=== PATIENT | male | born 1955 | race Caucasian/White ===

== ENCOUNTER 2016-10-31 12:59 | Outpatient (RCR) | payer BC ==
--- OUTSIDE RECORDS SUMMARY | 2016-08-06 13:06 | XMS REPORT | Continuity of Care Document ---
Author Author [facility] Organization [facility] Address Unknown Phone Unavailable Care Team Providers Care Rewind Operator Name Role Phone ANTIONETTE RUTH MD PCP Insurance Providers Payer Name Policy Number Subscriber Name Relationship [facility] [id number] Abel Britton 18 Self / Same As Patient Advance Directives Directive Response Recorded Date/Time Advance Directives No 05/10/16 11:00am Health Care Power of Staff Occupational Therapist No 05/10/16 11:00am Organ Donor Yes 05/10/16 11:00am Problems Active Problems Medical Problem Onset Date Status Cannabis abuse, daily use Unknown Acute Cerebrovascular accident due to cerebral artery occlusion Unknown Acute Daily consumption of alcohol Unknown Acute Hypertensive emergency Unknown Acute Malignant hypertension Unknown Acute Renal insufficiency Unknown Acute Stroke due to embolism of left anterior cerebral artery Unknown Acute TIA (transient ischemic attack) Unknown Acute Medications Current Home Medications Medication Dose Units Route Directions Days/Qty Instructions Start Date Aspirin 325 Mg 325 Mg Oral Every 24 Hours 30 Days 05/10/16 Rivaroxaban 20 Mg 20 Mg Oral Daily@1200 30 07/02/16 Atorvastatin Calcium 80 Mg 80 Mg Oral Bedtime 30 07/02/16 Clonidine Hcl 0.1 Mg 0.1 Mg Oral Twice A Day 60 07/02/16 Metoprolol Tartrate 50 Mg 100 Mg Oral Twice A Day 60 07/02/16 Amlodipine Besylate 10 Mg 10 Mg Oral Daily 30 07/02/16 Enalapril Maleate 10 Mg 20 Mg Oral Twice A Day 60 07/02/16 Citalopram Hydrobromide 10 Mg 10 Mg Oral Daily 30 07/02/16 Potassium Chloride 10 Meq 10 Meq Oral Daily 30 07/02/16 Past Home Medications Medication Directions Ordered Status Rivaroxaban 20 Mg Tablet, 20 Mg Oral Daily@1200 05/10/16 Discontinued Atorvastatin Calcium 80 Mg Tablet, 80 Mg Oral Bedtime 05/10/16 Discontinued Clonidine Hcl 0.1 Mg Tablet, 0.1 Mg Oral Twice A Day 05/10/16 Discontinued Metoprolol Tartrate 50 Mg Tablet, 100 Mg Oral Twice A Day 05/10/16 Discontinued Amlodipine Besylate 10 Mg Tablet, 10 Mg Oral Daily 05/10/16 Discontinued Enalapril Maleate 10 Mg Tablet, 20 Mg Oral Twice A Day 05/10/16 Discontinued Citalopram Hydrobromide 10 Mg Tablet, 10 Mg Oral Daily 05/10/16 Discontinued Potassium Chloride 10 Meq Tab.er.prt, 10 Meq Oral Daily 05/10/16 Discontinued Social History Social History Problem Response Recorded Date/Time Alcohol Use Regular Use 05/10/2016 3:14pm Recreational Drug Use Y DAILY THC USE 05/10/2016 3:14pm Recent Foreign Travel No 07/23/2016 12:28pm Hospital Discharge Instructions No hospital discharge instructions. Plan of Care Prescriptions See Medication Section Functional Status No functional status results. Allergies, Adverse Reactions, Alerts No known allergies. Immunizations No immunization records. Vital Signs No known vital signs results. Results No known relevant diagnostic tests, laboratory data and/or discharge summary. Procedures No known history of procedures. Encounters Encounter Location Arrival/Admit Date Discharge/Depart Date Attending Provider Registered Recurring [facility] 08/01/16 12:58pm ANTIONETTE RUTH MD Departed Clinic [facility] 07/24/16 11:15am 07/24/16 11: 42am YUNG CHOWDARY DO
[~2016-10-31 12:59] MED LIST: AMLO10TA2 PO; ASPI325T32 PO; ATOR80TA76 PO; CITA10TA7 PO; CLON0.1T PO; ENAL10TA PO; METO50TA2 PO; POTA10TA36 PO; RIVA20TA PO
[2016-11-25] MEDS ORDERED: LEVE500T6 PO (08:09)
[2016-11-25] MEDS ORDERED: METO-333 PO (08:48)
== END 2016-11-04 | disposition home or self-care (01) ==
PROVIDERS: ATTEND Internal Medicine
DX: I69.351 Hemiplegia and hemiparesis following cerebral infarction affecting right dominant side (principal); I69.320 Aphasia following cerebral infarction

== ENCOUNTER 2016-11-24 05:31 | Observation (INO) | payer BC ==
[~2016-11-24] VITALS: Ht 177.8 cm; Wt 106.6 kg
--- OUTSIDE RECORDS SUMMARY | 2016-11-24 05:37 | XMS REPORT | Continuity of Care Document ---
Author Author [facility] Organization [facility] Address Unknown Phone Unavailable Care Team Providers Care Therapeutic Riding Instructor Name Role Phone ANTIONETTE RUTH MD PCP Insurance Providers Payer Name Policy Number Subscriber Name Relationship [facility] [id number] Abel Britton 18 Self / Same As Patient Advance Directives Directive Response Recorded Date/Time Advance Directives No 05/10/16 11:00am Health Care Power of Shed Workers Supervisor No 05/10/16 11:00am Organ Donor Yes 05/10/16 [...] Discharge/Depart Date Attending Provider Registered Recurring [facility] 08/01/16 12:58pm ANTIONETTE RUTH MD Departed Clinic [facility] 07/24/16 11:15am 07/24/16 11: 42am YUNG CHOWDARY DO
--- NOTE | 2016-11-24 05:44 | ED Neurological Problem ---
General Chief Complaint: Neuro-Stroke Like Symptoms Stated Complaint: POSS STROKE Source: patient, EMS (JUAN GORDON DO) History of Present Illness Time seen by provider: 05:29 Initial Comments PT ARRIVES VIA EMS FROM HOME PT HAD CVA 05/2016 WITH RESIDUAL RIGHT SIDE WEAKNESS, SLURRED SPEECH AND RIGHT FACIAL DROOP WHEN PT WOKE UP THIS AM AT 0400, PT'S THOUGHT THAT HIS SPEECH WAS MORE SLURRED THAN NORMAL AND THE RIGHT SIDED FACIAL DROOP WAS WORSE THAN NORMAL THIS AM PT DENIES THAT HE IS ANY DIFFERENT THAN NORMAL AND STATES THAT HE FEELS FINE AND HAS NO COMPLAINTS OF ANY KIND NO NUMBNESS / TINGLING ANYWHERE NO HEADACHE OR PAIN ANYWHERE NO VISION CHANGES NO DIZZINESS 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 GUTHRIE (JUAN GORDON DO) Initial Comments reports to me that he woke up at 4 am and used urinal then went back to sleep. Later, she heard noises from his room and checked on him. He was half in and half out of bed and was making odd movements like he was trying to get into bed but was not responding to questions. After several minutes, he was begining to answer questions and then over time became back to normal except some right sided facial droop that is worse than normal. Has residual right sided weakness to arm and leg since stroke in May 2016. Also in speech therapy. (JACK SIMMONS MD) Allergies and Home Medications Allergies Coded Allergies: No Known Drug Allergies (Unverified , 05/03/16) Home Medications Acetaminophen 500 Mg Tablet 1-2 TAB PO Q4H PRN PRN PAIN (Reported) Amlodipine Besylate 10 Mg Tablet #30 10 MG PO DAILY Prescribed by: GRACIE MANZANO on 07/02/16 1354 Aspirin 325 Mg Tablet.dr 30Days 325 MG PO Q24H Prescribed by: GABRIELLE SENA on 05/10/16 0847 Atorvastatin Calcium 80 Mg Tablet #30 80 MG PO HS Prescribed by: GRACIE MANZANO on 07/02/16 1354 Citalopram Hydrobromide 10 Mg Tablet #30 10 MG PO DAILY Prescribed by: GRACIE MANZANO on 07/02/16 1354 Clonidine HCl 0.1 Mg Tablet #60 0.1 MG PO BID Prescribed by: GRACIE MANZANO on 07/02/16 1354 Enalapril Maleate 20 Mg Tablet 20 MG PO DAILY (Reported) Levetiracetam 500 Mg Tablet #60 500 MG PO BID Prescribed by: ANTIONETTE GUTHRIE on 11/25/16 0809 Metoprolol Tartrate 25 Mg Tablet #30 25 MG PO BID Prescribed by: ANTIONETTE GUTHRIE on 11/25/16 0848 Rivaroxaban 20 Mg Tablet #30 15 MG PO DAILY@1999 Prescribed by: MERT MUNROE on 11/24/16 0829 Constitutional: no symptoms reported Eyes: No Symptoms Reported Ears, Nose, Mouth, Throat: no symptoms reported Respiratory: no symptoms reported Cardiovascular: no symptoms reported Gastrointestinal: no symptoms reported Genitourinary: no symptoms reported Musculoskeletal: no symptoms reported Skin: no symptoms reported Psychiatric/Neurological: See HPI Endocrine: No Symptoms Reported Hematologic/Lymphatic: No Symptoms Reported (JUAN GORDON DO) Past Uggpbgq-Qjmyct-[id number] Hx Patient Social History Alcohol Use: Denies Use Recreational Drug Use: Yes (THC) Smoking Status: Never a Smoker Recent Hopitalizations: No Physical Abuse Screen: No Sexual Abuse: No (LAVELL GORDONA Tila TOLBERT) Immunizations Up To Date Tetanus Booster (TDap): Unknown (EVANLAVELLA Tila TOLBERT) Seasonal Allergies Seasonal Allergies: No (EVANLAVELLA Tila TOLBERT) Surgeries HX Surgeries: Yes (LOOP RECORDER PLACED 05/28/16) (JUAN GORDON DO) Respiratory Hx Respiratory Disorders: Yes (BRONCHITIS A CHILD; CPAP AT HS) Respiratory Disorders: Sleep Apnea (LAVELL GORDONA Tila TOLBERT) Cardiovascular Hx Cardiac Disorders: Yes (PAROXYSMAL ATRIAL FIB) Cardiac Disorders: Atrial Fibrillation, High Cholesterol, Hypertension (EVANLAVELLA K DO) Neurological Hx Neurological Disorders: Yes (CVA 05/2016 WITH RESIDUAL RIGHT SIDE WEAKNESS, RIGHT FACIAL DROOP AND MILDLY SLURRED SPEECH) Neurological Disorders: Stroke (EVANLAVELLA Tila TOLBERT) Genitourinary Hx Genitourinary Disorders: No (LAVELL GORDONA Tila TOLBERT) Gastrointestinal Hx Gastrointestinal Disorders: Yes (FATTY LIVER DISEASE) (LAVELL GORDONA Tila TOLBERT) Musculoskeletal Hx Musculoskeletal Disorders: Yes (FRACTURED LEFT CLAVICLE, FINGER DISLOCATION- -NO SURGERIES) Musculoskeletal Disorders: Fractures (LAVELL GORDONA Tila TOLBERT) Endocrine Hx Endocrine Disorders: No (EVAN,JUAN K DO) HEENT HX ENT Disorders: No (EVAN,JUAN K DO) Cancer Hx Cancer: No (EVAN,JUAN K DO) Psychosocial Hx Psychiatric Problems: No (EVAN,JUAN K DO) Integumentary HX Skin/Integumentary Disorder: No (EVAN,JUAN K DO) Blood Transfusions Hx Blood Disorders: No (EVAN,JUAN K DO) Family Medical History Family Medial History: Completed stroke 19 MOTHER Diabetes mellitus 19 MOTHER FH: BPH (benign prostatic hypertrophy) 19 FATHER Hypertension 19 MOTHER G8 SISTER Parkinson's disease 19 MOTHER (EVAN,JUAN K DO) Family Medial History: Completed stroke 19 MOTHER Diabetes mellitus 19 MOTHER FH: BPH (benign prostatic hypertrophy) 19 FATHER Hypertension 19 MOTHER G8 SISTER Parkinson's disease 19 MOTHER (JACK SIMMONS MD) Physical Exam Vital Signs Capillary Refill : General Appearance: WD/WN no apparent distress other (SMILING. ) HEENT: PERRL/EOMI normal ENT inspection Neck: non-tender full range of motion supple normal inspectionNo carotid bruit Respiratory: normal breath sounds no respiratory distress no accessory muscle use Cardiovascular: normal peripheral pulses regular rate, rhythm no edema no JVD no murmur Peripheral Pulses: 2+ Dorsalis Pedis (R), 2+ Left Dors-Pedis (L), 2+ Radial Pulses (R), 2+ Radial Pulses (L) Gastrointestinal: normal bowel sounds non tender soft Extremities: normal range of motion non-tender normal inspection no pedal edema no calf tenderness normal capillary refill Neurologic/Psychiatric: alert normal mood/affect oriented x 3 other (VERY SLIGHT RIGHT FACIAL DROOP, NO SENSORY DEFICIT. SPEECH VERY SLIGHTLY SLURRED. TONGUE MIDLINE; MILD TO MODERATE WEAKNESS TO RIGHT ARM AND LEG, WITH RIGHT LOWER LEG/ANKLE/FOOT IN A BRACE ) Crainal Nerves: normal hearing PERRLNo abnormal gag reflex Motor/Sensory: no sensory deficit pronator drift (R) weak motor strength RUE weak motor strength RLE other ( ABOVE) Skin: normal color warm/dry (EVAN,JUAN K DO) Vital Signs Vital Sign - Last 12Hours 11/24/16 05:33 Temp 98.6 Pulse 68 Resp 18 B/P 145/92 Pulse Ox 96 O2 Delivery Room Air HEENT: other (contusion and abrasion noted to right side of tongue.) Back: normal inspection no CVA tenderness no vertebral tenderness (JACK SIMMONS MD) Stroke Stroke Thrombolytic Exclusion Age 18 or Over: Yes History of CVA: No Severe Hypertension: Yes GI or Bleed: No Subarachnoid Hemorrhage: No Intracranial Neoplasm/Aneurysm: No Puncture of Non-Compressible V: No Recent CPR: No Diabetic Hemorrhagic Retinopat: No Organ Biopsy: No Recent Obstetric Delivery: No Significant Hepatic Dysfunctio: No NIH Stoke Scale >22: No Improving Symptoms: No (JUAN GORDON DO) Progress/Results/Core Measures Results/Orders My Orders Orders-JUAN GORDON DO Ekg Tracing (11/24/16 05:38) Cbc With Automated Diff (11/24/16 05:38) Comprehensive Metabolic Panel (11/24/16 05:38) Protime With Inr (11/24/16 05:38) Partial Thromboplastin Time (11/24/16 05:38) Magnesium (11/24/16 05:38) Chest 1 View, Ap/Pa Only (11/24/16 05:38) Cardiac Profile 1 (11/24/16 05:38) Cardiac Profile 2 (11/24/16 11:38) Myoglobin Serum (11/24/16 05:38) Ct Head Wo (11/24/16 05:38) Monitor-Rhythm Ecg Trace Only (11/24/16 05:38) (JUAN GORDON DO) Lab Results Laboratory Tests Test 11/24/16 05:36 11/24/16 06:35 Range/Units Activated Partial Thromboplast Time 38 H 24-35 SEC Alanine Aminotransferase (ALT/SGPT) 60 H 0-55 U/L Albumin 4.3 3.2-4.5 G/DL Alkaline Phosphatase 122 40-136 U/L Anion Gap 12 5-14 MMOL/L Aspartate Amino Transf (AST/SGOT) 34 5-34 U/L BUN/Creatinine Ratio 12 Basophils # (Auto) 0.0 0.0-0.1 10^3/uL Basophils (%) (Auto) 1 0-10 % Blood Urea Nitrogen 18 7-18 MG/DL Calcium Level 9.3 8.5-10.1 MG/DL Carbon Dioxide Level 22 21-32 MMOL/L Chloride Level 107 98-107 MMOL/L Creatinine 1.53 H 0.60-1.30 MG/DL Eosinophils # (Auto) 0.2 0.0-0.3 10^3/uL Eosinophils (%) (Auto) 3 0-10 % Estimat Glomerular Filtration Rate 47 Glucose Level 96 70-105 MG/DL Hematocrit 47 40-54 % Hemoglobin 16.3 13.3-17.7 G/DL INR Comment 1.7 H 0.8-1.4 Lymphocytes # (Auto) 2.1 1.0-4.0 X 10^3 Lymphocytes (%) (Auto) 31 12-44 % Magnesium Level 2.4 1.8-2.4 MG/DL Mean Corpuscular Hemoglobin 31 25-34 PG Mean Corpuscular Hemoglobin Concent 35 32-36 G/DL Mean Corpuscular Volume 90 80-99 FL Mean Platelet Volume 11.8 H 7.4-10.4 FL Monocytes # (Auto) 0.8 0.0-1.0 X 10^3 Monocytes (%) (Auto) 11 0-12 % Myoglobin 101.1 H 10.0-92.0 NG/ML Neutrophils # (Auto) 3.6 1.8-7.8 X 10^3 Neutrophils (%) (Auto) 54 42-75 % Platelet Count 172 130-400 10^3/uL Potassium Level 4.0 3.6-5.0 MMOL/L Prothrombin Time 19.7 H 12.2-14.7 SEC Red Blood Count 5.23 4.35-5.85 10^6/uL Red Cell Distribution Width 12.7 10.0-14.5 % Sodium Level 141 135-145 MMOL/L Total Bilirubin 0.4 0.1-1.0 MG/DL Total Protein 6.9 6.4-8.2 G/DL Troponin I < 0.30 <0.30 NG/ML White Blood Count 6.7 4.3-11.0 10^3/uL Urine Bacteria TRACE /HPF Urine Bilirubin NEGATIVE NEGATIVE Urine Casts PRESENT /LPF Urine Clarity CLEAR Urine Color YELLOW Urine Crystals NONE /LPF Urine Culture Indicated NO Urine Glucose (UA) NEGATIVE NEGATIVE Urine Hyaline Casts RARE /LPF Urine Ketones NEGATIVE NEGATIVE Urine Leukocyte Esterase NEGATIVE NEGATIVE Urine Mucus NEGATIVE /LPF Urine Nitrite NEGATIVE NEGATIVE Urine Protein 1+ H NEGATIVE Urine RBC RARE /HPF Urine RBC (Auto) 1+ H NEGATIVE Urine Specific Flora 1.020 1.016-1.022 Urine Squamous Epithelial Cells RARE /HPF Urine Urobilinogen NORMAL NORMAL MG/DL Urine WBC NONE /HPF Urine pH 5 5-9 My Orders Orders-JACK SIMMONS MD Levetiracetam Injection (Keppra Injectio (11/24/16 06:36) Ua Culture If Indicated (11/24/16 06:39) Vital Signs/I&O Vital Sign - Last 12Hours 11/24/16 11/24/16 05:33 07:02 Temp 98.6 98.6 Pulse 68 58 Resp 18 18 B/P 145/92 Pulse Ox 96 96 O2 Delivery Room Air Room Air (JACK SIMMONS MD) Progress Note : Progress Note 0600--CARE TURNED OVER TO DR. SIMMONS, ALL STUDIES PENDING (JUAN GORDON DO) Progress Note : Progress Note I assumed care of the patient pending CT and labs. 0630, Indications of seizure noted in physical exam and history. Keppra 1000 mg IV x 1 now loading dose. [address] Steen (Dr Guthrie PCP). She accepts patient for admission observation status. Patient and family agree with plan. Pt has history of stroke. This does not appear to represent new stroke and TPA not indicated. Exam indicative of residual weakness. Patient reports he does not want TPA either way. Patient on Xarelto and ASA daily and took yesterdays dosing as prescribed. (JACK SIMMONS MD) ECG Initial ECG Impression Time: 05:47 Initial ECG Rate: 65 Initial ECG Rhythm: Normal Sinus Initial ECG Impression: Normal Initial ECG Comparisson: Unchanged (JUAN GORDON DO) Diagnostic Imaging Comments CT HEAD CXR (JUAN GORDON DO) Diagonstic Imaging: Xray Plain Films/CT/US/NM/MRI: chest Comments NAME: ALPESH BRITTON J MED REC#: [id number] PT STATUS: REG ER : 1955 PHYSICIAN: JUAN GORDON DO ADMIT DATE: 11/24/16/ER Signed Date of Exam: 11/24/16 CHEST 1 VIEW, AP/PA ONLY Indication: Slurred speech. Facial droop. History of stroke. Findings: Upright portable chest shows normal heart size and vascularity. The lungs are clear. There is no effusion or pneumothorax. Impression: Normal portable chest. There is no change from 05/03/16. Dictated by: Dictated on workstation # [id number] Dict: 11/24/16 0655 Trans: 11/24/[address] [facility] [id number] Interpreted by: CARIE CARREON MD Electronically signed by:CARIE CARREON MD 11/24/16 0704 Reviewed: Reviewed by Me Diagonstic Imaging: CT Plain Films/CT/US/NM/MRI: head Comments NAME: ALPESH BRITTON [facility] REC#: [id number] PT STATUS: REG ER : 1955 PHYSICIAN: JUAN GORDON DO ADMIT DATE: 11/24/16/ER Signed Date of Exam: 11/24/16 CT HEAD WO PROCEDURE: CT head without contrast. TECHNIQUE: Multiple contiguous axial images were obtained through the brain without the use of intravenous contrast. INDICATION: Slurred speech. Right-sided facial droop. History of stroke. The ventricles are normal in size, shape and position. There are encephalomalacia changes in the medial left frontal lobe in an anterior cerebral artery distribution. There is no acute parenchymal hemorrhage, edema or mass. There is no extra-axial mass or hemorrhage. IMPRESSION: Previous vascular insult in left anterior cerebral artery distribution. These changes were seen on a prior study from 05/13/16. No acute abnormality is seen. Dictated by: Dictated on workstation # [id number] Dict: 11/24/16 0653 Trans: 11/24/[address] [facility] [id number] Interpreted by: CAIRE CARREON MD Electronically signed by:CARIE CARREON MD 11/24/16 0704 Reviewed: Reviewed [facility] Study, Reviewed by Me (JACK SIMMONS MD) Departure Communication Time/Spoke to Admitting Phy: 06:40 (JACK SIMMONS MD) Impression Impression: Primary Impression: New onset seizure Disposition: ADMITTED INPATIENT Condition: Stable Decision to Admit Reason: Admit from ER (General) Decision to Admit/Date: Nov 24, 2016 Time/Decision to Admit Time: 06:40 (AJCK SIMMONS MD) Departure-Patient Inst. Referrals: ANTIONETTE GUTHRIE MD (PCP) Primary Care Physician Scripts Metoprolol Tartrate 25 Mg [id number] Mg PO BID #30 TAB Prov:ANTIONETTE GUTHRIE MD 11/25/16 Levetiracetam 500 Mg [id number] Mg PO BID #60 TAB Ref 5 Prov:ANTIONETTE GUTHRIE MD 11/25/16 Rivaroxaban (Xarelto)20 Mg [id number] Mg PO DAILY@1999 #30 TAB Prov: 11/24/16 JUAN GORDON DO Nov 24, 2016 05:44 JACK SIMMONS MD Nov 24, 2016 06:55
[2016-11-24 05:46] LABS: BASOPHILS % (AUTO) 1 % (0-10); EOSINOPHILS # (AUTO) 0.2 10^3/uL (0.0-0.3); EOSINOPHILS % (AUTO) 3 % (0-10); LYMPHOCYTES # (AUTO) 2.1 X 10^3 (1.0-4.0); LYMPHOCYTES % (AUTO) 31 % (12-44); MEAN CORPUSCULAR HEMOGLOBIN 31 PG (25-34); MEAN CORPUSCULAR HGB CONC 35 G/DL (32-36); MEAN CORPUSCULAR VOLUME 90 FL (80-99); MEAN PLATELET VOLUME 11.8 FL (7.4-10.4); MONOCYTES # (AUTO) 0.8 X 10^3 (0.0-1.0); MONOCYTES % (AUTO) 11 % (0-12); NEUTROPHILS # (AUTO) 3.6 X 10^3 (1.8-7.8); NEUTROPHILS % (AUTO) 54 % (42-75); PLATELET COUNT 172 10^3/uL (130-400); RED BLOOD COUNT 5.23 10^6/uL (4.35-5.85); RED CELL DISTRIBUTION WIDTH 12.7 % (10.0-14.5); WHITE BLOOD COUNT 6.7 10^3/uL (4.3-11.0)
[2016-11-24] MEDS ORDERED: METO50TA2 PO (05:49)
[2016-11-24] MEDS ORDERED: ACET-2267 PO (05:49)
[2016-11-24] MEDS ORDERED: ENAL20TA PO (05:49)
[2016-11-24 05:56] LABS: INR 1.7 (0.8-1.4); PROTHROMBIN TIME PATIENT 19.7 SEC (12.2-14.7)
[2016-11-24 06:10] LABS: ALANINE AMINOTRANSFERASE 60 U/L (0-55); ALBUMIN 4.3 G/DL (3.2-4.5); ANION GAP 12 MMOL/L (5-14); ASPARTATE AMINO TRANSFERASE 34 U/L (5-34); BILIRUBIN,TOTAL 0.4 MG/DL (0.1-1.0); BLOOD UREA NITROGEN 18 MG/DL (7-18); BUN/CREATININE RATIO 12; CALCIUM 9.3 MG/DL (8.5-10.1); CARBON DIOXIDE 22 MMOL/L (21-32); CHLORIDE 107 MMOL/L (98-107); CREATININE SERUM 1.53 MG/DL (0.60-1.30); GFR ESTIMATED 47; GLUCOSE 96 MG/DL (70-105); MAGNESIUM 2.4 MG/DL (1.8-2.4); SODIUM 141 MMOL/L (135-145); TOTAL PROTEIN 6.9 G/DL (6.4-8.2)
[2016-11-24 06:18] LABS: MYOGLOBIN SERUM 101.1 NG/ML (10.0-92.0)
[2016-11-24] MEDS ORDERED: LEVETIRACETAM INJECTION 1,000 MG in NORMAL SALINE (BAXTER MINI) 100 ML IV STA (06:36)
[2016-11-24 06:48] LABS: BILIRUBIN,URINE NEGATIVE (NEGATIVE); KETONES,URINE NEGATIVE (NEGATIVE); LEUKOCYTE ESTERASE ,URINE NEGATIVE (NEGATIVE); NITRITE,URINE NEGATIVE (NEGATIVE); PH,URINE 5 (5-9); PROTEIN,URINE 1+ (NEGATIVE); UROBILINOGEN,URINE NORMAL (NORMAL)
[2016-11-24 06:53] LABS: HYALINE CASTS, URINE RARE /LPF; SQUAMOUS EPITHELIAL CELL,UR RARE /HPF
--- NOTE | 2016-11-24 06:56 | Diagnostic Imaging Report ---
PROCEDURE: CT head without contrast. TECHNIQUE: Multiple contiguous axial images were obtained through the brain without the use of intravenous contrast. INDICATION: Slurred speech. Right-sided facial droop. History of stroke. The ventricles are normal in size, shape and position. There are encephalomalacia changes in the medial left frontal lobe in an anterior cerebral artery distribution. There is no acute parenchymal hemorrhage, edema or mass. There is no extra-axial mass or hemorrhage. IMPRESSION: Previous vascular insult in left anterior cerebral artery distribution. These changes were seen on a prior study from 05/13/16. No acute abnormality is seen. Dictated by: Dictated on workstation # [id number]
--- NOTE | 2016-11-24 06:57 | Diagnostic Imaging Report ---
Indication: Slurred speech. Facial droop. History of stroke. Findings: Upright portable chest shows normal heart size and vascularity. The lungs are clear. There is no effusion or pneumothorax. Impression: Normal portable chest. There is no change from 05/03/16. Dictated by: Dictated on workstation # [id number]
[2016-11-24] MEDS ORDERED: NS IV 1000 ML 1,000 ML IV SCH (07:45)
[2016-11-24] MEDS ORDERED: LORazepam INJ 2 MG/ML (ATIVAN) VIAL IV PRN (07:45)
[2016-11-24] MEDS ORDERED: RIVA20TA PO ×2 (08:24→08:29)
[2016-11-24] MEDS ORDERED: ACETAMINOPHEN 500 MG TAB (TYLENOL) PO PRN (08:30)
[2016-11-24] MEDS ORDERED: ENALAPRIL 10 MG (VASOTEC) TAB PO SCH (09:00)
[2016-11-24] MEDS ORDERED: meTOprolol TARTRATE 50 MG (LOPRESSOR) TAB PO SCH (09:00)
[2016-11-24] MEDS ORDERED: ASPIRIN E.C. 325 MG (ECOTRIN) TABLET PO SCH (09:00)
[2016-11-24] MEDS ORDERED: cloNIDine 0.1 MG (CATAPRES) TAB PO SCH (09:00)
[2016-11-24] MEDS ORDERED: amLODIPine 10 MG (NORVASC) TAB PO SCH (09:00)
[2016-11-24] MEDS: amLODIPine 10 MG (NORVASC) TAB PO SCH (11:15)
[2016-11-24] MEDS: ASPIRIN E.C. 325 MG (ECOTRIN) TABLET PO SCH (11:16)
[2016-11-24] MEDS: ENALAPRIL 20MG TABLET PO SCH (11:16)
[2016-11-24] MEDS: meTOprolol TARTRATE 50 MG (LOPRESSOR) TAB PO SCH ×2 (11:17→21:00)
[2016-11-24] MEDS: cloNIDine 0.1 MG (CATAPRES) TAB PO SCH ×2 (11:18→16:19)
--- NOTE | 2016-11-24 11:20 | History & Physical-Hospitalist ---
HPI History of Present Illness: HPI/Chief Complaint this is a 61-year-old white male with a previous left-sided CVA with right- sided hemiparesis. He had been recovering well but was found with sonorous and gasping respirations nonresponsive in his bedroom by his this morning. He was confused as he began to awaken and there was bruising and evidence of trauma to his tongue. He is now completely awaken and alert and has no remembrance of this occasion Source: family Exam Limitations: clinical condition Date Seen 11/24/16 Attending Physician Kristen Jasso MD PCP Roger Guthrie MD Referring Physician Date of Admission Nov 24, 2016 at 07:14 Home Medications & Allergies Home Medications Reviewed patient Home Medication Reconciliation Form Allergies Coded Allergies: No Known Drug Allergies (Unverified , 05/03/16) Past Ldmuwpz-Vqexzv-Cdtskn Hx Patient Social History Employed/Student: employed Alcohol Use: Rarely Uses Recreational Drug Use: No Smoking Status: Never a Smoker Physical Abuse Screen: No Sexual Abuse: No Recent Foreign Travel: No Contact w/other who traveled: No Recent Hopitalizations: No Recent Infectious Disease Expo: No Immunizations Up To Date Tetanus Booster (TDap): Unknown Date of Pneumonia Vaccine: Aug 21, 2016 Date of Influenza Vaccine: Aug 21, 2016 Seasonal Allergies Seasonal Allergies: No Surgeries HX Surgeries: Yes (LOOP RECORDER PLACED 05/28/16) Respiratory Hx Respiratory Disorders: Yes (BRONCHITIS A CHILD; CPAP AT HS) Cardiovascular Hx Cardiovascular Disorders: Yes (PAROXYSMAL ATRIAL FIB) Cardiac Disorders: Atrial Fibrillation, High Cholesterol, Hypertension Neurological Hx Neurological Disorders: Yes (CVA 05/2016 WITH RESIDUAL RIGHT SIDE WEAKNESS, RIGHT FACIAL DROOP AND MILDLY SLURRED SPEECH) Neurological Disorders: Stroke Genitourinary Hx Genitourinary Disorders: Yes (renal insufficiency with mild proteinuria) Gastrointestinal Hx Gastrointestinal Disorders: Yes (FATTY LIVER DISEASE) Musculoskeletal Hx Musculoskeletal Disorders: Yes (FRACTURED LEFT CLAVICLE, FINGER DISLOCATION- -NO SURGERIES) Musculoskeletal Disorders: Fractures, Contracture Endocrine Hx Endocrine Disorders: No HEENT HX ENT Disorders: No Cancer Hx Cancer: No Psychosocial Hx Psychiatric Problems: No Integumentary HX Skin/Integumentary Disorder: No Blood Transfusions Hx Blood Disorders: No Family Medical History Family Hx: Completed stroke 19 MOTHER Diabetes mellitus 19 MOTHER FH: BPH (benign prostatic hypertrophy) 19 FATHER Hypertension 19 MOTHER G8 SISTER Parkinson's disease 19 MOTHER Review of Systems Constitutional: no symptoms reported Respiratory: no symptoms reported Cardiovascular: no symptoms reported Gastrointestinal: no symptoms reported Genitourinary: no symptoms reported Musculoskeletal: muscle stiffness Psychiatric/Neurological: Seizure Physical Exam Physical Exam Vital Signs Vital Sign - Last 12Hours 11/24/16 05:33 Temp 98.6 Pulse 68 Resp 18 B/P 145/92 Pulse Ox 96 O2 Delivery Room Air Capillary Refill : Less Than 3 Seconds General Appearance: No Apparent Distress WD/WN HEENT: Other (slight right facial droop that is old) Neck: Normal Inspection Non Tender Supple Respiratory: Chest Non Tender Lungs Clear Normal Breath Sounds Cardiovascular: Regular Rate, Rhythm No Gallop No Murmur Gastrointestinal: Normal Bowel Sounds No Organomegaly Non Tender Soft Back: Normal Inspection Extremity: Other (hemiparesis right side that's old) Neurologic/Psychiatric: Alert Oriented x3 Abnormal faculty administrator II-XII (unable to move his eyes laterally either to the left or to the right) Aphasia (expressive in complaint) Facial Droop Motor Weakness (right arm right leg) Skin: Normal Color Results Results/Procedures Lab Laboratory Tests 11/24/16 05:36 Assessment/Plan Admission Diagnosis 1. new-onset seizures most likely secondary to previous CVA 2. Sided CVA with right-sided hemiparesis presumed to be secondary to atrial fibrillation on Xarelto and aspirin 3. history of severe hypertension 4. History of mild renal insufficiency with a baseline creatinine 1.5 and 1+ proteinuria Plan to begin Keppra check her Keppra dose in the morning monitor for 24 hours for any further seizure activity. saturation could be given to an MRI tomorrow to examine other there has been any extension of the old stroke Clinical Quality Measures DVT/VTE Risk/Contraindication: Risk Factor Score Per Nursin RFS Level Per Nursing on Admit: 4+=Very High Stroke: Date of last known well: Nov 24, 2016 KRISTEN JASSO MD Nov 24, 2016 11:20
[2016-11-24 12:00] VITALS: BP 115/70
[2016-11-24 16:00] VITALS: BP 107/59
[2016-11-24 20:00] VITALS: BP 103/58
[2016-11-24] MEDS ORDERED: RIVAROXABAN 20 MG TABLET (XARELTO) PO SCH (20:00)
[2016-11-24] MEDS: LEVETIRACETAM 500 MG (KEPPRA) TAB PO SCH (20:09)
[2016-11-24] MEDS ORDERED: ATORVASTATIN 80 MG (LIPITOR) TABLET PO SCH (21:00)
[2016-11-25 00:10] VITALS: BP 127/84
[2016-11-25 04:00] VITALS: BP 132/87
[2016-11-25 08:00] VITALS: BP 144/91
[2016-11-25] MEDS ORDERED: LEVE500T6 PO (08:09)
[2016-11-25] MEDS ORDERED: METO-333 PO (08:48)
[2016-11-25] MEDS: LEVETIRACETAM 500 MG (KEPPRA) TAB PO SCH (10:00)
[2016-11-25] MEDS: meTOprolol TARTRATE 50 MG (LOPRESSOR) TAB PO SCH (10:02)
[2016-11-25] MEDS: amLODIPine 10 MG (NORVASC) TAB PO SCH (10:03)
[2016-11-25] MEDS: ASPIRIN E.C. 325 MG (ECOTRIN) TABLET PO SCH (10:04)
[2016-11-25] MEDS: ENALAPRIL 20MG TABLET PO SCH (10:05)
[2016-11-25] MEDS: cloNIDine 0.1 MG (CATAPRES) TAB PO SCH (10:05)
[2016-11-25 10:34] VITALS: BP 121/91
--- NOTE | 2016-11-28 15:41 | Physician Query-Final Dx ---
AFUA FREITAS 11/28/16 1541: Final Diagnosis Give Final Diagnosis Please give Final Diagnosis ANGELINA JASSO MD 12/02/16 0825: Final Diagnosis Give Final Diagnosis [place] Seizure CVA-old HTN AFUA FREITAS Nov 28, 2016 15:41 ANGELINA JASSO MD Dec 02, 2016 08:25
== END 2016-11-25 08:10 | disposition home or self-care (01) ==
LOC: EDUNIT# 05:31 → ER 05:33 → UNDOADMOB 07:14 → 4TH 07:14 → UNDODISOB 11-25 10:40
PROVIDERS: ADMIT Internal Medicine; ATTEND Internal Medicine
DX: I69.398 Other sequelae of cerebral infarction (principal); G40.909 Epilepsy, unspecified, not intractable, without status epilepticus; I69.351 Hemiplegia and hemiparesis following cerebral infarction affecting right dominant side; I69.328 Other speech and language deficits following cerebral infarction; I69.392 Facial weakness following cerebral infarction; I48.0 Paroxysmal atrial fibrillation; I10 Essential (primary) hypertension
CPT/HCPCS: 36415; 70450; 71010; 80053; 80177; 81000; 83735; 83874; 84484; 85025; 85610; 85730; 93005; 93041; 96365; G0378

== ENCOUNTER → 2017-02-04 | Outpatient (RCR) | payer BC ==
--- OUTSIDE RECORDS SUMMARY | 2016-11-06 13:35 | XMS REPORT | Continuity of Care Document ---
Author Author [facility] Organization [facility] Address Unknown Phone Unavailable Care Team Providers Care Test Desk Trouble Locator Name Role Phone ANTIONETTE RUTH MD PCP Insurance Providers Payer Name Policy Number Subscriber Name Relationship [facility] [id number] Abel Britton 18 Self / Same As Patient Advance Directives Directive Response Recorded Date/Time Advance Directives No 05/10/16 11:00am Health Care Power of Scow Derrick Operator No 05/10/16 11:00am Organ Donor Yes 05/10/16 [...] Discharge/Depart Date Attending Provider Registered Recurring [facility] 08/01/16 12:58pm ANTIONETTE RUTH MD Departed Clinic [facility] 07/24/16 11:15am 07/24/16 11: 42am YUNG CHOWDARY DO
[~2017-02-04] MED LIST changes: +ACET-2267 PO; +ENAL20TA PO; +LEVE500T6 PO; +METO-333 PO
== END | disposition home or self-care (01) ==
PROVIDERS: ATTEND Internal Medicine
DX: I69.351 Hemiplegia and hemiparesis following cerebral infarction affecting right dominant side (principal); I69.320 Aphasia following cerebral infarction

== ENCOUNTER 2017-05-01 12:58 | Outpatient (RCR) | payer BC | END 2017-05-07 | disposition home or self-care (01) | PROVIDERS: ATTEND Internal Medicine | DX: I69.351 Hemiplegia and hemiparesis following cerebral infarction affecting right dominant side (principal); I69.320 Aphasia following cerebral infarction ==

== ENCOUNTER 2017-07-31 13:07 | Outpatient (RCR) | payer BC | END 2017-08-02 | disposition home or self-care (01) | PROVIDERS: ATTEND Internal Medicine | DX: I69.351 Hemiplegia and hemiparesis following cerebral infarction affecting right dominant side; I69.320 Aphasia following cerebral infarction ==

== ENCOUNTER 2017-10-31 10:56 | Outpatient (RCR) | payer BC ==
[~2017-10-31 10:56] MED LIST changes: +METO50TA15 PO; -METO50TA2 PO
== END 2017-11-03 | disposition home or self-care (01) ==
PROVIDERS: ATTEND Internal Medicine
DX: I69.351 Hemiplegia and hemiparesis following cerebral infarction affecting right dominant side (principal); I69.320 Aphasia following cerebral infarction

== ENCOUNTER → 2017-12-04 | Outpatient (CLI) | payer BC ==
--- NOTE | 2017-12-04 17:48 | Diagnostic Imaging Report ---
INDICATION: Right arm swelling. FINDINGS: Duplex ultrasound of the right upper extremity was done with grayscale, spectral waveform, and color Doppler flow analysis. The veins were compressible and had normal spontaneous and augmented flow. IMPRESSION: Negative venous Doppler of the right upper extremity. Dictated by: Dictated on workstation # [id number]
== END ==
LOC: RAD 16:25
PROVIDERS: ATTEND Internal Medicine
DX: M79.89 Other specified soft tissue disorders (principal); W19.XXXA Unspecified fall, initial encounter

== ENCOUNTER → 2018-03-04 | Outpatient (RCR) | payer BC | END | disposition home or self-care (01) | PROVIDERS: ATTEND Internal Medicine | DX: I69.351 Hemiplegia and hemiparesis following cerebral infarction affecting right dominant side (principal); I69.320 Aphasia following cerebral infarction ==

== ENCOUNTER → 2018-03-16 | Outpatient (CLI) | payer BC ==
[2018-03-16 11:55] LABS: ABG BASE EXCESS 0.1 MMOL/L (-2.5-2.5); ABG OXYGEN SATURATION 96 % (94-100); ABG PCO2 38 MMHG (35-45); ABG PH 7.42 (7.37-7.43); ABG PO2 74 MMHG (79-93); ABG TCO2 25.3 MMOL/L (21.0-31.0); ALLENS TEST YES-POS; INSPIRED O2 ROOM AIR; PATIENT TEMP 98.4; VENTILATOR NO
== END ==
LOC: LAB 11:14
PROVIDERS: ATTEND Nurse Practitioner Family
DX: G47.33 Obstructive sleep apnea (adult) (pediatric) (principal)
CPT/HCPCS: 36600; 82805

== ENCOUNTER 2018-06-03 13:42 | Outpatient (RCR) | payer BC | END 2018-06-04 | disposition home or self-care (01) | PROVIDERS: ATTEND Internal Medicine | DX: I69.351 Hemiplegia and hemiparesis following cerebral infarction affecting right dominant side (principal); I69.320 Aphasia following cerebral infarction ==

== ENCOUNTER 2018-07-29 15:00 | Outpatient (RCR) | payer BC ==
[~2018-07-29 15:00] MED LIST changes: -AMLO10TA2 PO; +AMLO10TA6 PO
== END 2018-08-04 08:14 | disposition home or self-care (01) ==
PROVIDERS: ATTEND Internal Medicine
DX: I69.351 Hemiplegia and hemiparesis following cerebral infarction affecting right dominant side (principal); I69.320 Aphasia following cerebral infarction

== ENCOUNTER 2018-08-05 13:29 | Outpatient (RCR) | payer BC | END 2018-08-18 14:42 | disposition home or self-care (01) | PROVIDERS: ATTEND Internal Medicine | DX: I69.351 Hemiplegia and hemiparesis following cerebral infarction affecting right dominant side (principal); I69.320 Aphasia following cerebral infarction ==

== ENCOUNTER 2019-05-16 12:07 | Emergency (ER) | payer MEDICARE ==
[~2019-05-16] VITALS: Ht 180.3 cm; Wt 122.5 kg
[~2019-05-16 12:07] MED LIST changes: -AMLO10TA6 PO; +AMLO10TA7 PO; -RIVA20TA PO; +RIVA20TA2 PO
--- NOTE | 2019-05-16 12:25 | ED Head Injury ---
General Stated Complaint: MULTIPLE FALLS/HIT HEAD Source: patient Exam Limitations: no limitations History of Present Illness Date Seen by Provider: May 16, 2019 Time Seen by Provider: 12:20 Initial Comments To ER by private vehicle accompanied by his with reports of head injury and back pain. He has had a stroke with subsequent right-sided hemiparesis in 2016. He then had a seizure about 6 months later. Because of this right sided weakness he does fall occasionally. He fell once yesterday striking the right side of his forehead around the orthodox without loss of consciousness. He had a to attend yesterday and insisted that he go so he was not evaluated at that point. He then fell again this morning striking the back left side of his head. He states that overall he feels fine and has no complaints of weakness or feeling off. He is not concerned about the falls nor is his , they're concerned however about the injury sustained as result of these falls. He has developed some midline low back pain that does not radiate down either leg. He is not on anticoagulation other than aspirin. Occurred: yesterday Severity: moderate Location: temporal Method of Injury: fell Loss of Consciousness: no loss of consciousness Associated Systoms: Denies Symptoms; No Headaches, No Nausea/Vomiting, No Syncope, No Weakness Allergies and Home Medications Allergies Coded Allergies: No Known Drug Allergies (Unverified , 05/03/16) Home Medications Acetaminophen 500 Mg Tablet, 1-2 TAB PO Q4H PRN for PAIN, (Reported) Aspirin 325 Mg Tablet.dr, 325 MG PO Q24H Prescribed by: GABRIELLE SENA on 05/10/16 0847 Atorvastatin Calcium 80 Mg Tablet, 80 MG PO HS Prescribed by: GRACIE MANZANO on 07/02/16 1354 Citalopram Hydrobromide 10 Mg Tablet, 10 MG PO DAILY Prescribed by: GRACIE MANZANO on 07/02/16 1354 Enalapril Maleate 20 Mg Tablet, 20 MG PO DAILY, (Reported) Levetiracetam 500 Mg Tablet, 500 MG PO BID Prescribed by: ANTIONETTE RUTH on 11/25/16 0809 Metoprolol Tartrate 25 Mg Tablet, 25 MG PO BID Prescribed by: ANTIONETTE RUTH on 11/25/16 0848 Rivaroxaban 20 Mg Tablet, 15 MG PO DAILY@1999 Prescribed by: MERT MUNROE on 11/24/16 0829 Patient Home Medication List Home Medication List Reviewed: Yes (he is off xarelto according to his .) Review of Systems Review of Systems Constitutional: see HPI Eyes: No Symptoms Reported Ears, Nose, Mouth, Throat: no symptoms reported Respiratory: no symptoms reported Cardiovascular: no symptoms reported Genitourinary: no symptoms reported Musculoskeletal: see HPI, back pain Skin: no symptoms reported Psychiatric/Neurological: No Symptoms Reported Endocrine: No Symptoms Reported Hematologic/Lymphatic: No Symptoms Reported Past Kumuuoz-Vxdcao-Llrocr Hx Patient Social History Recent Foreign Travel: No Contact w/Someone Who Travel: No Recent Hopitalizations: No Immunizations Up To Date Tetanus Booster (TDap): Unknown Date of Pneumonia Vaccine: Aug 21, 2016 Date of Influenza Vaccine: Aug 21, 2016 Seasonal Allergies Seasonal Allergies: No Past Medical History Surgeries: Yes (LOOP RECORDER PLACED 05/28/16) Respiratory: Yes (BRONCHITIS A CHILD; CPAP AT HS) Sleep Apnea Currently Using CPAP: No Cardiac: Yes (PAROXYSMAL ATRIAL FIB) Atrial Fibrillation, High Cholesterol, Hypertension Neurological: Yes Stroke Gastrointestinal: Yes (FATTY LIVER DISEASE) Musculoskeletal: Yes (FRACTURED LEFT CLAVICLE, FINGER DISLOCATION--NO SURGERIES) Fractures, Contracture Endocrine: No Cancer: No Psychosocial: No Integumentary: No Blood Disorders: No Family Medical History Completed stroke 19 MOTHER Diabetes mellitus 19 MOTHER FH: BPH (benign prostatic hypertrophy) 19 FATHER Hypertension 19 MOTHER G8 SISTER Parkinson's disease 19 MOTHER Physical Exam Vital Signs Vital Signs - First Documented 05/16/19 12:11 Temp 97.5 Pulse 71 Resp 18 B/P (MAP) 132/83 (99) Pulse Ox 95 O2 Delivery Room Air Capillary Refill : Height, Weight, BMI Height: 5'10.00" Weight: 235lbs. 0.0oz. 106.489018oo; 33.7 BMI Method:Stated General Appearance: WD/WN, no apparent distress HEENT: PERRL/EOMI, normal ENT inspection, TMs normal, pharynx normal, other (Ecchymosis without palpable hematoma over the right orthodox. No visualized hematoma and abrasion or ecchymosis to the left occiput from his fall this morning) Neck: non-tender, full range of motion Respiratory: chest non-tender, no respiratory distress, no accessory muscle use Gastrointestinal: normal bowel sounds, non tender, soft; No tenderness Back: vertebral tenderness (upper lumbar midline) Extremities: non-tender, no pedal edema, no calf tenderness, other (has had right-sided weakness) Psychiatric: alert, oriented x 3 Crainal Nerves: normal hearing, normal speech [place] Coma Score Best Eye Response: (4) Open Spontaneously Best Verbal Response: (5) Oriented Best Motor Response: (6) Obeys Commands [place] Total: 15 Progress/Results/Core Measures Results/Orders My Orders Orders - DIANA PUENTES APRN Ct Head/Cervical Spine Wo (05/16/19 12:18) Ct Lumbar Spine Wo (05/16/19 12:18) Vital Signs/I&O 05/16/19 12:11 Temp 97.5 Pulse 71 Resp 18 B/P (MAP) 132/83 (99) Pulse Ox 95 O2 Delivery Room Air Departure Impression Primary Impression: Scalp contusion Qualified Codes: S00.03XA - Contusion of scalp, initial encounter Additional Impressions: Minor head injury Qualified Codes: S09.90XA - Unspecified injury of head, initial encounter Hemiparesis affecting right side as late effect of cerebrovascular accident (CVA) Disposition: 01 HOME, SELF-CARE Condition: Stable Departure-Patient Inst. Decision time for Depature: 13:25 Referrals: ANTIONETTE RUTH MD (PCP/Family) Primary Care Physician Patient Instructions: Minor Head Injury Add. Discharge Instructions: 1. Tylenol and ibuprofen are fine for pain control. Return to ER for any concerns DIANA PUENTES APRN May 16, 2019 12:25
--- NOTE | 2019-05-16 13:20 | Diagnostic Imaging Report ---
PROCEDURE: CT lumbar spine without contrast. TECHNIQUE: Multiple contiguous axial images were obtained through the lumbar spine without the use of intravenous contrast. Sagittal and coronal reformations were then performed. Auto Exposure Controls were utilized during the CT exam to meet ALARA standards for radiation dose reduction. INDICATION: Fell and hit head. Back pain after fall. FINDINGS: There is normal height and alignment of the lumbar vertebral bodies. The L1-L2 level shows no significant abnormality. At L2-L3, there is disc space narrowing and spondylosis with degenerated facets resulting in a dxwk-np-eyhtponi central canal stenosis. At L3-L4, there is disc space narrowing and bulging of disc and spondylosis with degenerated facets resulting in a moderately severe spinal canal stenosis. At L4-L5, there is disc space narrowing and bulging of the disc with degenerated facets resulting in a moderately severe spinal canal stenosis. At L5-S1, there is disc space narrowing and spondylosis which is causing bilateral foraminal narrowing. There is no fracture or other acute abnormality seen at any level. IMPRESSION: There are diffuse degenerative changes present resulting in multilevel stenosis. No fracture or other acute abnormality is evident. Dictated by: Dictated on workstation # [id number]
--- NOTE | 2019-05-16 13:21 | Diagnostic Imaging Report ---
PROCEDURE: CT head and CT cervical spine without contrast. TECHNIQUE: Multiple contiguous axial images were obtained through the brain and cervical spine without the use of intravenous contrast. Sagittal and coronal reformations through the cervical spine were then performed. Auto Exposure Controls were utilized during the CT exam to meet ALARA standards for radiation dose reduction. INDICATION: Fall yesterday with head injury and bruising to the right side of the head. COMPARISON: 11/24/2016 FINDINGS: CT HEAD: No acute intracranial hemorrhage is seen. There is no CT evidence of acute territorial ischemia. There is encephalomalacia in the left anterior cerebral distribution from old infarct which appear stable. No calvarium fracture is seen. There is mild soft tissue edema at the right frontal scalp. CT CERVICAL SPINE: No acute fracture is seen in the cervical spine. There is straightening of the lordosis but no spondylolisthesis. There is severe degenerative changes from C4-5 down to C7-T1. Vertebral body heights are preserved. No bony fragments or hyperdense fluid collections are seen in the spinal canal. The soft tissues of the neck demonstrate no acute abnormality. IMPRESSION: 1. No acute intracranial hemorrhage or calvarium fracture. There is mild right frontal soft tissue edema. 2. Advanced degenerative changes in the cervical spine with no acute fracture seen. Dictated by: Dictated on workstation # [id number]
[2019-05-16 13:36] VITALS: BP 117/69
== END 2019-05-16 13:36 | disposition home or self-care (01) ==
LOC: ER 12:07 → EDUNIT# 12:07 → ER 13:36
DX: S09.90XA Unspecified injury of head, initial encounter (principal); S00.03XA Contusion of scalp, initial encounter; I69.951 Hemiplegia and hemiparesis following unspecified cerebrovascular disease affecting right dominant side; G47.30 Sleep apnea, unspecified; I48.0 Paroxysmal atrial fibrillation; I10 Essential (primary) hypertension; E78.00 Pure hypercholesterolemia, unspecified; R40.2142 Coma scale, eyes open, spontaneous, at arrival to emergency department; R40.2252 Coma scale, best verbal response, oriented, at arrival to emergency department; R40.2362 Coma scale, best motor response, obeys commands, at arrival to emergency department; Z79.82 Long term (current) use of aspirin; Z82.49 Family history of ischemic heart disease and other diseases of the circulatory system; W01.198A Fall on same level from slipping, tripping and stumbling with subsequent striking against other object, initial encounter
CPT/HCPCS: 70450; 72125; 72131

== ENCOUNTER 2019-08-23 11:17 | Outpatient (RCR) | payer MEDICARE | END 2019-08-24 | disposition home or self-care (01) | PROVIDERS: ATTEND Internal Medicine | DX: I69.341 Monoplegia of lower limb following cerebral infarction affecting right dominant side (principal) ==

== ENCOUNTER 2019-09-09 11:07 | Outpatient (RCR) | payer MEDICARE | END 2019-09-09 13:00 | disposition home or self-care (01) | PROVIDERS: ATTEND Internal Medicine | DX: I69.341 Monoplegia of lower limb following cerebral infarction affecting right dominant side (principal); I69.310 Attention and concentration deficit following cerebral infarction ==

== ENCOUNTER 2021-05-24 13:45 | Outpatient (RCR) | payer MEDICARE ==
[~2021-05-24 13:45] MED LIST changes: +AMLO-251 PO; -AMLO10TA7 PO; +CLN.1T PO; -CLON0.1T PO; -ENAL10TA PO; +ENAL10TA16 PO; -ENAL20TA PO; +ENAL20TA16 PO
== END 2021-05-29 | disposition home or self-care (01) ==
PROVIDERS: ATTEND Internal Medicine
DX: S30.810A Abrasion of lower back and pelvis, initial encounter (principal); I10 Essential (primary) hypertension; W19.XXXA Unspecified fall, initial encounter; Z86.73 Personal history of transient ischemic attack (TIA), and cerebral infarction without residual deficits

== ENCOUNTER 2021-06-13 13:39 | Outpatient (RCR) | payer MEDICARE | END 2021-06-13 16:37 | disposition home or self-care (01) | PROVIDERS: ATTEND Internal Medicine | DX: S30.810A Abrasion of lower back and pelvis, initial encounter (principal); I10 Essential (primary) hypertension; Z86.73 Personal history of transient ischemic attack (TIA), and cerebral infarction without residual deficits; W19.XXXA Unspecified fall, initial encounter; Y92.019 Unspecified place in single-family (private) house as the place of occurrence of the external cause ==

== ENCOUNTER 2022-03-01 14:13 | Outpatient (RCR) | payer MEDICARE ==
[~2022-03-01 14:13] MED LIST changes: -CITA10TA7 PO; +CITA10TA9 PO; -POTA10TA36 PO; +POTA10TA37 PO
== END 2022-03-02 | disposition home or self-care (01) ==
PROVIDERS: ATTEND Internal Medicine
DX: I69.351 Hemiplegia and hemiparesis following cerebral infarction affecting right dominant side (principal)

== ENCOUNTER → 2022-04-02 | Outpatient (RCR) | payer MEDICARE | END | disposition home or self-care (01) | PROVIDERS: ATTEND Internal Medicine | DX: I69.351 Hemiplegia and hemiparesis following cerebral infarction affecting right dominant side (principal) ==

== ENCOUNTER 2022-04-10 13:35 | Outpatient (RCR) | payer MEDICARE | END 2022-04-10 16:44 | disposition home or self-care (01) | PROVIDERS: ATTEND Internal Medicine | DX: I69.351 Hemiplegia and hemiparesis following cerebral infarction affecting right dominant side (principal) ==

== ENCOUNTER 2023-03-28 13:39 | Outpatient (RCR) | payer MEDICARE ==
[~2023-03-28 13:39] MED LIST changes: +ENAL-70 PO; -ENAL10TA16 PO; -ENAL20TA16 PO; +ENLP10T PO; +POTA-177 PO; -POTA10TA37 PO
== END 2023-04-02 | disposition home or self-care (01) ==
PROVIDERS: ATTEND Internal Medicine
DX: I69.351 Hemiplegia and hemiparesis following cerebral infarction affecting right dominant side (principal); I10 Essential (primary) hypertension

== ENCOUNTER → 2023-05-02 | Outpatient (RCR) | payer MEDICARE | END | disposition still patient (30) | PROVIDERS: ATTEND Internal Medicine | DX: I69.351 Hemiplegia and hemiparesis following cerebral infarction affecting right dominant side (principal); I10 Essential (primary) hypertension ==

== ENCOUNTER 2023-05-29 14:07 | Outpatient (RCR) | payer MEDICARE | END 2023-06-02 | disposition home or self-care (01) | PROVIDERS: ATTEND Internal Medicine | DX: I69.351 Hemiplegia and hemiparesis following cerebral infarction affecting right dominant side (principal) ==

== ENCOUNTER 2023-06-30 13:37 | Outpatient (RCR) | payer MEDICARE | END 2023-07-03 | disposition home or self-care (01) | PROVIDERS: ATTEND Internal Medicine | DX: I69.351 Hemiplegia and hemiparesis following cerebral infarction affecting right dominant side (principal); I10 Essential (primary) hypertension ==